=== PATIENT | male | born 1990 | race American Indian/Alaskan Native ===

== ENCOUNTER 2019-06-29 22:22 | Emergency (ER) | payer SELFPAY ==
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
== END 2019-06-30 01:30 ==
LOC: EDBD → ED 22:22
DX: S27.9XXA Injury of unspecified intrathoracic organ, initial encounter (principal); S21.102A Unspecified open wound of left front wall of thorax without penetration into thoracic cavity, initial encounter; I46.8 Cardiac arrest due to other underlying condition; W34.00XA Accidental discharge from unspecified firearms or gun, initial encounter; Y93.89 Activity, other specified; Y92.89 Other specified places as the place of occurrence of the external cause; Y99.8 Other external cause status
CPT/HCPCS: 31500; 92950